=== PATIENT | female | born 1980 | race Caucasian/White ===

== ENCOUNTER 2019-08-26 19:23 | Emergency (ER) | payer BC ==
[~2019-08-26] VITALS: Ht 170.2 cm; Wt 104.7 kg
--- NOTE | 2019-08-26 21:23 | NUR ---
PT A&OX4, RESP EVEN & UNLABORED, SPEECH CLEAR, SKIN WNL. C/O BLACK STICKY BM'S THIS MORNING. REPORTS ABD PAIN & NAUSEA SINCE TUESDAY. HAS TAKEN PEPTO-BISMOL X 3 DAYS (LAST DOSE: 0900 TODAY). PAIN IN EPIGASTRIC AREA. DENIES UTI SX. PAIN IMPROVES W/ EATING. LMP: ABOUT 4 WEEKS - IRREGULAR SINCE ABLATION 01/2019). LAST ORAL INTAKE: 1600 TODAY.
[2019-08-26] MEDS ORDERED: PANTOPRAZOLE 40 MG IV IVPush ONE (21:30)
[2019-08-26] MEDS ORDERED: SODIUM CHLORIDE FLUSH 10ML SYR IVF ONE (21:30)
--- NOTE | 2019-08-26 21:40 | NUR ---
DR KRISHNA BS FOR EXAM W/ THIS RN ASSIST.
[2019-08-26 21:45] VITALS: BP 112/72
--- NOTE | 2019-08-26 21:50 | NUR ---
LABS AND MEDICATION ORDERS TO BE CANCELLED PER VO DR KRISHNA.
== END 2019-08-26 22:05 | disposition home or self-care (01) ==
LOC: ED 20:25
DX: R10.13 Epigastric pain (principal); R11.0 Nausea
CPT/HCPCS: 99283